=== PATIENT | male | born 1990 | race Caucasian/White ===

== ENCOUNTER 2021-06-06 21:45 | Emergency (ER) | payer OTHER ==
[~2021-06-06] VITALS: Ht 175.3 cm; Wt 96.8 kg
[2021-06-06] MEDS ORDERED: IV RINGERS SOLUTION,LACTATED 1,000 ML IV ONE (22:00)
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
[2021-06-06 22:25] LABS: BASO % 1 % (0-3); EOS # 0.1 x10^3/uL (0.0-0.7); EOS % 1 % (0-3); HEMATOCRIT 42.7 % (39.0-53.0); HEMOGLOBIN 14.7 g/dL (13.0-17.5); LYMPH # 2.2 x10^3/uL (1.0-4.8); LYMPH % 38 % (24-48); MEAN CORPUSCULAR HEMOGLOBIN 30 pg (25-35); MEAN CORPUSCULAR HGB CONC 34 g/dL (31-37); MEAN CORPUSCULAR VOLUME 88 fL (79-100); MONO # 0.5 x10^3/uL (0.0-1.1); MONO % 8 % (0-9); NEUT % 52 % (31-73); PLATELET COUNT 168 x10^3/uL (140-400); RED BLOOD COUNT 4.86 x10^6/uL (4.30-5.70); RED CELL DISTRIBUTION WIDTH 13.2 % (11.5-14.5); WHITE BLOOD COUNT 5.7 x10^3/uL (4.0-11.0)
[2021-06-06 22:34] LABS: CALCIUM 8.2 mg/dL (8.5-10.1); CREATININE 1.4 mg/dL (0.7-1.3); GFR 59.5
[2021-06-06 22:39] LABS: MAGNESIUM 1.7 mg/dL (1.8-2.4)
[2021-06-06 22:40] LABS: POTASSIUM 4.2 mmol/L (3.5-5.1)
--- NOTE | 2021-06-06 22:42 | RAD ---
CT head without contrast dated 06/06/2021 10:39 PM Comparison: None CLINICAL INDICATION: Syncope TECHNIQUE: Contiguous axial imaging of the head was performed from skull base to vertex. One or more of the following individualized dose reduction techniques were utilized for this examinat ion: 1. Automated exposure control 2. Adjustment of the mA and/or kV according to patient size 3. Use of iterative reconstruction technique. FINDINGS: Ventricles and sulci are within normal limits for age. No midline shift or mass effect. Brain parench yma is of normal attenuation. No hemorrhage or extra-axial collection. Posterior fossa and brainstem unremarkable. Visualized paranasal sinuses and mastoid air cells are clear. No apparent calvarial abnormality. IMPRESSION: No evidence of acute intracranial abnormality. Electronically signed by: Pepito Centeno MD (06/06/2021 10:40 PM) PATTI
--- NOTE | 2021-06-06 22:44 | EKG ---
[address] [address] Test Date: 2021-06-06 Test Time: 21:41:51 Pat Name: VICENTE CORNELIUS Department: Room: Gender: M [employer]: : 1990 Requested By: NILSON HASSAN Order Number: [id number] Reading MD: Measurements Intervals [place] Rate: 111 P: -24 OK: 160 QRS: 134 QRSD: 136 T: 18 QT: 356 QTc: 488 Interpretive Statements SINUS TACHYCARDIA ABNORMAL RIGHT AXIS DEVIATION NON SPECIFIC INTRAVENTRICULAR BLOCK CONSIDER RIGHT VENTRICULAR HYPERTROPHY QRS(T) CONTOUR ABNORMALITY CONSIDER INFERIOR MYOCARDIAL DAMAGE ABNORMAL ECG RI6.02 No previous ECG available for comparison
[2021-06-06 23:50] VITALS: BP 142/93
[2021-06-07] MEDS ORDERED: MAGNESIUM OXIDE 400 MG TABLET PO ONE
[2021-06-07] MEDS ORDERED: ESCITALOPRAM OX10 MG PO (02:39)
[2021-06-07] MEDS ORDERED: QUET100T4 PO (02:39)
[2021-06-07] MEDS ORDERED: LAMO100T5 PO (02:39)
[2021-06-07] MEDS ORDERED: CLON0.1T PO (02:39)
== END 2021-06-06 23:55 | disposition home or self-care (01) ==
LOC: ER 21:45
DX: T67.5XXA Heat exhaustion, unspecified, initial encounter (principal); R55 Syncope and collapse; E86.0 Dehydration; X58.XXXA Exposure to other specified factors, initial encounter; Y93.89 Activity, other specified; Y92.89 Other specified places as the place of occurrence of the external cause; Y99.8 Other external cause status
CPT/HCPCS: 36415; 70450; 80048; 82550; 83735; 84484; 85025; 93005; 96360; 99285; J7120